=== PATIENT | female | born 1985 | race Caucasian/White ===

== ENCOUNTER 2019-03-30 10:02 | Outpatient (CLI) | payer OTHER, SELFPAY ==
--- NOTE | 2019-03-30 08:45 | MR_ITS ---
WS: [id number] MRI RIGHT SHOULDER NONCONTRAST TECHNIQUE: Sagittal T2, coronal T1, T2 and proton density imaging. Axial gradient PDE imaging. CLINICAL INFORMATION: shoulder pain COMPARISON: None. FINDINGS: Moderate degenerative arthritis at the AC joint. Mild downsloping of the acromion. Subacromial spurri ng. Small near full-thickness insertional tear distal supraspinatus measures 8 mm on sagittal view wi th fluid signal. No tendon retraction. Tendinopathy of the supraspinatus. Infraspinatus is intact. No rmal teres minor. Tendinopathy within the subscapularis. Normal subscapularis. Normal biceps tendon in the bicipital groove. Subscapularis tendon appears inta ct. Small amount of tendinopathy in the subscapularis. Normal biceps labral anchor. Glenoid labrum appears grossly intact. MR/MR shoulder RT wo con* [id number] IMPRESSION: 1. Small insertional tear at the supraspinatus distally with fluid signal. Ins ertional tear measures 8.7 mm on the sagittal imaging. 2. Rotator cuff is otherwise intact. 3. Tendinopathy in supraspinatus and subscapularis. 4. Biceps tendon is intact within the bicipital groove.
== END 2019-03-30 10:03 | disposition home or self-care (01) ==
LOC: RADSHAW 10:02
PROVIDERS: Family Provider Family Medicine; PCP Registered Nurse; Visit Provider Registered Nurse
DX: M75.101 Unspecified rotator cuff tear or rupture of right shoulder, not specified as traumatic (principal); M25.511 Pain in right shoulder; G89.29 Other chronic pain
CPT/HCPCS: 73221

== ENCOUNTER 2019-06-03 14:24 | Outpatient (CLI) | payer OTHER, SELFPAY ==
--- NOTE | 2019-06-03 14:45 | CT_ITS ---
WS: [id number] CT CERVICAL SPINE TECHNIQUE: Noncontrast CT of the cervical spine with coronal and sagittal reformatted images. CLINICAL INFORMATION: extremity numbness COMPARISON: None. DLP: 1292.[address] scans at [facility] use at least one of these dose optimization techniques: automat ed exposure control; mA and/or kV adjustment per patient size (includes targeted exams where dose is matched to clinical indication); or iterative reconstruction. FINDINGS: Straightening of the normal cervical lordosis. Normal C1-C2 articulation. Disc osteophyte complex wor se at C6-7. Low-lying cerebellar tonsils likely incidental. C2-C3: Normal. C3-C4: Normal. C4-C5: No significant disc bulging. Spinal canal and foramen are patent. C5-C6: Mild central disc bulging with slight effacement of ventral thecal sac. Mild central canal brittanie nosis. Foramen are patent. C6-C7: Mild disc osteophyte complex eccentric to the right. Mild central canal stenosis. Mild bilater al foraminal narrowing. C7-T1: No significant disc bulging. Spinal canal and foramen are patent. Visualized posterior nasopharynx: Normal. Prevertebral soft tissues: Normal. CT/CT cervical spin wo con* [id number] IMPRESSION: 1. Straightening of the normal cervical lordosis. 2. Disc osteophyte complex C6-C7 eccentric to the right with mild central eric l stenosis. Mild bilateral foraminal narrowing. 3. Small central disc bulging with mild central canal stenosis. Mild bilateral foraminal narrowing. 4. Slightly low-lying cerebellar tonsils likely incidental.
== END 2019-06-03 14:25 | disposition home or self-care (01) ==
PROVIDERS: Family Provider Family Medicine; PCP Registered Nurse; Visit Provider Registered Nurse
DX: R20.0 Anesthesia of skin (principal); M25.78 Osteophyte, vertebrae; M48.02 Spinal stenosis, cervical region
CPT/HCPCS: 72125

== ENCOUNTER 2019-12-26 22:39 | Emergency (ER) | payer OTHER, SELFPAY ==
[2019-12-26 22:44] VITALS: BP 123/72; PULSE 96; RESP 17; TEMP 36.4; O2SAT 96; BMI 36.3
--- NOTE | 2019-12-26 23:38 | USR_ITS ---
PROCEDURE INFORMATION: Exam: US Nonobstetric Pelvis; Complete Exam date and time: 12/27/2019 12:05 AM Age: 34 years old Clinical indication: Pelvic pain; Prior surgery; Surgery date: 6+ months; Surgery type: C section TECHNIQUE: Imaging protocol: Transabdominal pelvic nonobstetric ultrasound. Complete exam. Real time ultrasound with image documentation. COMPARISON: CT abdomen pelvis w con* [id number] 03/10/2017 2:43 AM FINDINGS: Uterus/cervix: Uterus is normal. Endometrial stripe is normal. Right adnexa: Right ovary 10 mm cyst, likely follicular. Left adnexa: Ovary is normal. No mass. Normal blood flow. Intraperitoneal space: None. Bladder: Normal. US/US pelvic complete* [id number] IMPRESSION: Right ovary 10 mm cyst, likely follicular.
[2019-12-26 23:51] VITALS: BP 124/88; PULSE 84; RESP 16; O2SAT 97
[2019-12-26 23:57] LABS: Basophils # 0.1 10^3/uL (0.0-0.1); Basophils % 0.6 %; Eosinophils # 0.4 10^3/uL (0.0-0.8); Eosinophils % 2.9 %; Hematocrit 44.5 % (37.0-47.0); Lymphocytes # 4.2 10^3/uL (0.8-4.8); Lymphocytes % 30.7 %; Mean Corpuscular HGB Conc 31.5 g/dL (30.0-36.0); Mean Corpuscular Hemoglobin 28.6 pg (28.0-34.0); Mean Platelet Volume 11.2 fL (7.4-10.4); Monocytes % 7.3 %; Neutrophils # 7.97 10^3/uL (1.8-7.7); Neutrophils % 58.1 %; Nucleated Red Blood Cells % 0 %; Platelet Count 237 10^3/cmm (130-400); Red Blood Count 4.89 10^6/uL (4.1-5.3); Red Cell Distribution Width 13.7 % (12.1-15.1); White Blood Count 13.7 10^3/uL (4.0-10.0)
[2019-12-27] VITALS (8 sets, daily range): BP systolic 102–128; BP diastolic 64–80; PULSE 66–94; RESP 14–18; O2SAT 97–100
[2019-12-27 00:14] LABS: Alanine Aminotransferase 40 U/L (0-33); Albumin Level 4.2 g/dL (3.5-5.2); Alkaline Phosphatase 76 IU/L (35-105); Anion Gap 15.7 (5-19); Aspartate Amino Transferase 19 U/L (0-32); Blood Urea Nitrogen 11 mg/dL (6-20); Calcium 9.9 mg/dL (8.5-10.5); Carbon Dioxide 23 mmol/L (22-29); Chloride 101 mmol/L (98-107); Globulin 2.6 g/dL (1.3-4.6); Glucose 105 mg/dL (65-115); Lipase 35 U/L (13-60); Osmolality Calculated 282 mOsm/kg (285-295); Potassium 3.7 mmol/L (3.5-5.1); Sodium 136 mmol/L (136-145); Total Bilirubin 0.2 mg/dL (0.15-1.2); Total Protein 6.8 g/dL (6.6-8.7)
--- NOTE | 2019-12-27 00:25 | W.ED.ABDPA2 ---
HPI - Abdominal Pain General: Chief Complaint: Abdominal Pain Stated Complaint: pelvis pain Time Seen by Provider: 12/26/19 23:33 Source: patient Mode of arrival: ambulatory Limitations: no limitations History of Present Illness: HPI narrative: Bria is a 34-year-old female who comes in complaining of cramping and pressure in her abdomen. He says that she has had diarrhea as well as vaginal discharge. Denies any vaginal bleeding. She denies any fevers or chills. She has been nauseated but has not vomited. She states she feels like when she has had pelvic inflammatory disease in the past and does have vaginal discharge at this time but she states it is not severe and not like when she had pelvic inflammatory disease before. Also complains of diarrhea but there is been no blood in her stools. She has not tried anything at home for this before coming in. She is unaware of any exacerbating or alleviating factors. States the pain is been going on for the past 6 to 8 hours and is not worsening but not resolving. MD elicited complaint: abdominal pain Pertinent past history: other (Pelvic inflammatory disease) Onset (ago): hour(s) (6-8) Pain Consistency: constant Location: Diffuse Severity: moderate Quality: cramping, fullness and burning Radiation: none Migration to: no migration Exacerbating factors: nothing Relieving factors: nothing Context: foreign travel and sick contacts Associated Symptoms: Denies chills, coffee ground emesis, constipation, GI cramping, diarrhea, fever(s), heartburn, hematochezia, hematuria, hematemesis, melena, nausea, syncope and vomiting Related Data: Date of Last Menstrual Period: 12/10/19 Review of Systems Const: Denies: fever(s), chills, body aches, fatigue, malaise or diaphoresis Eyes: Denies: change in vision, blurry vision, photophobia, eye discomfort, eye discharge, eye redness or yellow eyes ENMT: Denies: throat pain, odynophagia, hoarseness, swelling of lips/tongue, ear or mastoid pain, ear discharge, change in hearing or nasal discharge Card: Denies: chest pain, palpitations, irregular heart rhythm, edema, lightheadedness, syncope, pre-syncope, dyspnea on exertion or orthopnea Resp: Denies: dyspnea, productive cough, non-productive cough, wheezing, hemoptysis or chest congestion GI: Reports: abdominal pain; Denies: nausea, vomiting, hematemesis, coffee ground emesis, heartburn, diarrhea, constipation, GI cramping, hematochezia or melena : Reports: vaginal discharge; Denies: flank pain, urinary frequency, urinary urgency or hematuria Musc: Denies: neck pain, back pain, extremity pain, extremity swelling, joint pain, joint swelling, joint redness, joint warmth or joint stiffness Skin/Breast: Denies: rash, pruritus, erythema, skin pain or skin tenderness Neuro: Denies: headache(s), numbness in extremities, weakness in extremities, sensory changes, lack of coordination, difficulty walking, dizziness, vertigo, confusion, Slurred speech present or seizure-like activity Gavin/Lymph: Denies: easy bruising, easy bleeding, petechiae, purpura or enlarged lymph nodes All/Imm: Denies: urticaria, throat swelling, tongue swelling, facial swelling or acute wheezing PFSH ED PFSH: Medical History Chronic right shoulder pain Family History Mother Diabetes Father Diabetes Social History Smoking and tobacco status: current every day smoker cigarettes Quit status (tobacco): has tried quititng Alcohol intake: never Household members: spouse Marital status: Current occupational status: employed Current gender identity: Female Female Reproductive History: Date of last menstrual period: 12/10/19 Physical Exam Const: COMMON NORMALS: no acute distress, patient oriented x3, no limitations and alert GENERAL APPEARANCE: cooperative HENMT: COMMON NORMALS: normocephalic, atraumatic, external ears normal, EAC's normal and Normal external nose present HEAD & SCALP: normal to inspection, normocephalic and atraumatic FACE & SINUS: normal facial exam and face symmetric NOSE: Normal external nose present and Normal nares present EXTERNAL EAR: Yes external ears normal EXTERNAL AUDITORY CANAL: EAC's normal MOUTH: Normal oral and palatal mucosa present, lip normal and tongue normal Eye: COMMON NORMALS: Equal, round and reactive pupils present and conjunctivae normal GENERAL EYE: appearance normal, both eyes and all related structures ALIGNMENT: Yes alignment normal PERIORBITAL: periorbital findings normal EYELID: eyelids normal CONJUNCTIVA: Yes conjunctivae normal SCLERA: sclerae normal PUPIL: Yes Equal, round and reactive pupils present Neck/C-Spine: COMMON NORMALS: full ROM, no lymphadenopathy, supple, no meningeal signs and no JVD GENERAL: Yes normal visual inspection and Yes trachea midline Chest: COMMONS NORMALS: normal inspection of the chest and normal palpation of entire chest wall Resp: COMMON NORMALS: normal respiratory effort, No retractions, No use of accessory muscles and clear to auscultation bilaterally EFFORT & INSPECTION: Yes able to speak in complete sentences and Yes symmetric chest movement AUSCULTATION: clear to auscultation bilaterally, no crackles, no rales, no rhonchi and no wheezes Cardio: COMMON NORMALS: no JVD, regular rate, regular rhythm, S1 normal heart sound present and S2 normal heart sound present RATE: regular rate RHYTHM: regular rhythm HEART SOUNDS: S1 normal heart sound present, S2 normal heart sound present, no click, no gallops, no murmurs and no rubs GI: COMMON NORMALS: Soft to palpation and No hepatosplenomegaly present PALPATION: Yes Soft to palpation, No Tenderness to palpation present (GI), No Guarding due to palpation present (GI), No Rigid due to palpation, Yes No hepatosplenomegaly present, No Hernia present, No Palpable mass present and No Pulsatile mass present : COMMON NORMALS: Yes no CVA tenderness BLADDER/KIDNEY EXAM: Yes no CVA tenderness EXTERNAL FEMALE EXAM: No Hernia present BIMANUAL EXAM - ADNEXA, OTHER: Yes Other (Pelvic exam -no obvious discharge. Mild cervical motion tenderness with palpation but no abscesses or masses palpated. Cervix closed. No vaginal bleeding or vaginal discharge present.) Back/Pelvis: COMMON NORMALS: no CVA tenderness, thoracic and lumbar spine normal to inspection, no thoracic nor lumbar tenderness and thoraco-lumbar ROM normal Extremity: COMMON NORMALS: normal to inspection, full ROM, capillary refill normal, no joint enlargement, no clubbing, cyanosis or edema and no calf tenderness Neuro: COMMON NORMALS: patient oriented x3, CN's II-XII intact bilaterally, moves all extremities, no focal motor deficits and no sensory deficits noted SENSORIUM/ORIENTATION: Yes alert MENINGEAL SIGNS: Yes no meningeal signs SPEECH: speech normal Psych: COMMON NORMALS: mental status grossly normal, Normal thought process present, cooperative, normal affect, speech normal and activity/motor behavior normal SPEECH: Yes normal speech THOUGHT PROCESS: Normal thought process present Skin: COMMON NORMALS: no rashes or lesions noted, turgor normal, no jaundice, no petechiae and no mottling GENERAL SKIN EXAM: no rashes or lesions noted and turgor normal Course Vital Signs: Vital signs: Vital Signs Temperature 97.6 F 12/26/19 22:44 Pulse Rate 66 12/27/19 03:15 Respiratory Rate 14 12/27/19 03:15 Blood Pressure 108/68 12/27/19 03:15 Pulse Oximetry 99 12/27/19 03:15 MDM - Abdominal Pain MDM Narrative: Medical decision making narrative: Bria is a nice 34-year-old female who comes in complaining of lower abdominal pain. Her pain is somewhat her pelvic inflammatory disease in the past but tonight her pelvic exam was not tremendously remarkable and her wet prep was unremarkable. As she had mild cervical motion tenderness I will go ahead and place her on antibiotics. CT scan was performed to rule out appendicitis and there is no evidence of this. I did discuss with the patient that developing appendicitis could still be a cause for her pain and if necessary if she is having any pain at all within the next 12 hours she will need to return. She states she understands this and will follow-up as directed or return if needed. Patient's ultrasound also revealed no evidence of tubo-ovarian abscess. Patient understands that if her symptoms worsen or change she will need to return here immediately. On repeat exam she does not demonstrate any sign of peritonitis. Lab Data: Attestation: I reviewed the patient's lab results. Labs: Lab Results 12/26/19 12/26/19 12/26/19 Range/Units 23:40 23:40 23:40 WBC 13.7 H (4.0-10.0) 10^3/ uL RBC 4.89 (4.1-5.3) 10^6/u L Hgb 14.0 (11.5-15.3) g/dL Hct 44.5 (37.0-47.0) % MCV 91.0 (81-99) fL MCH 28.6 (28.0-34.0) pg MCHC 31.5 (30.0-36.0) g/dL RDW 13.7 (12.1-15.1) % Plt Count 237 (130-400) 10^3/c mm MPV 11.2 H (7.4-10.4) fL Neut % (Auto) 58.1 % Lymph % (Auto) 30.7 % Cost[place] % (Auto) 7.3 % Eos % (Auto) 2.9 % Baso % (Auto) 0.6 % Neut # (Auto) 7.97 H (1.8-7.7) 10^3/u L Lymph # (Auto) 4.2 (0.8-4.8) 10^3/u L [place] # (Auto) 1.0 H (0.2-0.9) 10^3/u L Eos # (Auto) 0.4 (0.0-0.8) 10^3/u L Baso # (Auto) 0.1 (0.0-0.1) 10^3/u L Nucleated RBC % (a uto) 0 % Nucleated RBCs # 0.0 /100WBC Sodium 136 (136-145) mmol/L Potassium 3.7 (3.5-5.1) mmol/L Chloride 101 (98-107) mmol/L Carbon Dioxide 23 (22-29) mmol/L Anion Gap 15.7 (5-19) BUN 11 (6-20) mg/dL Creatinine 0.7 (0.5-0.9) mg/dL GFR Calculation 97.0 (90-130) mL/min Glucose 105 (65-115) mg/dL Calculated Osmolal ity 282 L (285-295) mOsm/k g Calcium 9.9 (8.5-10.5) mg/dL Total Bilirubin 0.2 (0.15-1.2) mg/dL AST 19 (0-32) U/L ALT 40 H (0-33) U/L Alkaline Phosphata se 76 (35-105) IU/L Total Protein 6.8 (6.6-8.7) g/dL Albumin 4.2 (3.5-5.2) g/dL Globulin 2.6 (1.3-4.6) g/dL Lipase 35 (13-60) U/L HCG, Qual Negative (Negative) Urine Color (Yellow) Urine Appearance (CLEAR) Urine pH (5-7) Ur Specific Gravit y (1.005-1.030) Urine Protein (Negative) Urine Glucose (UA) (Normal) Urine Ketones (Negative) Urine Blood (Negative) Urine Nitrate (Negative) Urine Bilirubin (Negative) Urine Urobilinogen (Negative) mg/dL Ur Leukocyte Hailey ase (Negative) Urine RBC (0-2) /hpf Urine WBC (0-5) /hpf Ur Squamous Epith Cells (0-5) /hpf Amorphous Sediment Urine Bacteria (NONE) /hpf 12/27/19 Range/Units 00:13 WBC (4.0-10.0) 10^3/ uL RBC (4.1-5.3) 10^6/u L Hgb (11.5-15.3) g/dL Hct (37.0-47.0) % MCV (81-99) fL MCH (28.0-34.0) pg MCHC (30.0-36.0) g/dL RDW (12.1-15.1) % Plt Count (130-400) 10^3/c mm MPV (7.4-10.4) fL Neut % (Auto) % Lymph % (Auto) % Cost[place] % (Auto) % Eos % (Auto) % Baso % (Auto) % Neut # (Auto) (1.8-7.7) 10^3/u L Lymph # (Auto) (0.8-4.8) 10^3/u L Costilla # (Auto) (0.2-0.9) 10^3/u L Eos # (Auto) (0.0-0.8) 10^3/u L Baso # (Auto) (0.0-0.1) 10^3/u L Nucleated RBC % (a uto) % Nucleated RBCs # /100WBC Sodium (136-145) mmol/L Potassium (3.5-5.1) mmol/L Chloride (98-107) mmol/L Carbon Dioxide (22-29) mmol/L Anion Gap (5-19) BUN (6-20) mg/dL Creatinine (0.5-0.9) mg/dL GFR Calculation (90-130) mL/min Glucose (65-115) mg/dL Calculated Osmolal ity (285-295) mOsm/k g Calcium (8.5-10.5) mg/dL Total Bilirubin (0.15-1.2) mg/dL AST (0-32) U/L ALT (0-33) U/L Alkaline Phosphata se (35-105) IU/L Total Protein (6.6-8.7) g/dL Albumin (3.5-5.2) g/dL Globulin (1.3-4.6) g/dL Lipase (13-60) U/L HCG, Qual (Negative) Urine Color Straw (Yellow) Urine Appearance Clear (CLEAR) Urine pH 5 (5-7) Ur Specific Gravit y 1.005 (1.005-1.030) Urine Protein Neg (Negative) Urine Glucose (UA) Norm (Normal) Urine Ketones Negative (Negative) Urine Blood Neg (Negative) Urine Nitrate Negative (Negative) Urine Bilirubin Neg (Negative) Urine Urobilinogen Norm (Negative) mg/dL Ur Leukocyte Hailey ase Negative (Negative) Urine RBC None (0-2) /hpf Urine WBC None (0-5) /hpf Ur Squamous Epith Cells 0-4 H (0-5) /hpf Amorphous Sediment Not Reportable Urine Bacteria None (NONE) /hpf Imaging Data ^: US: Radiologist's impression: [place] [address] Ultrasound Report Signed Patient: Bria Duran #: [id number] : 1985Acct#:[id number] Age/Sex: 34 / FADM Date: 12/26/19 Loc: ERRoom/Bed: Attending Dr: Ordering Provider/Ordering MD: Meredith Conde DO Date of Service: 12/26/19 Procedure(s): US pelvic complete* [id number] Accession Number(s): [id number] Report Number: [id number] PROCEDURE INFORMATION: Exam: US Nonobstetric Pelvis; Complete Exam date and time: 12/27/2019 12:05 AM Age: 34 years old Clinical indication: Pelvic pain; Prior surgery; Surgery date: 6+ months; Surgery type: C section TECHNIQUE: Imaging protocol: Transabdominal pelvic nonobstetric ultrasound. Complete exam. Real time ultrasound with image documentation. COMPARISON: CT abdomen pelvis w con* [id number] 03/10/2017 2:43 AM FINDINGS: Uterus/cervix: Uterus is normal. Endometrial stripe is normal. Right adnexa: Right ovary 10 mm cyst, likely follicular. Left adnexa: Ovary is normal. No mass. Normal blood flow. Intraperitoneal space: None. Bladder: Normal. US/US pelvic complete* [id number] IMPRESSION: Right ovary 10 mm cyst, likely follicular. Dictated By:Shaun Laura MD Signed By:Shaun Laura MDSigned Date/Time:12/27/1928 DD/ CT Abd/Pel: Radiologist's impression: [facility] [address] [place] [address] CT Scan Report Signed Patient: Bria Duran Unit #: [id number] : 1985 Age/Sex: 34 / F ADM Date: 12/26/19 Loc: ER Room/Bed: Attending Dr: Ordering Provider/Ordering MD: Meredith Conde DO Date of Service: 12/27/19 Procedure(s): CT abdomen pelvis w con* [id number] Accession Number(s): [id number] Report Number: [id number] PROCEDURE INFORMATION: Exam: CT Abdomen And Pelvis With Contrast Exam date and time: 12/27/2019 2:32 AM Age: 34 years old Clinical indication: Abdominal pain; Generalized TECHNIQUE: Imaging protocol: Computed tomography of the abdomen and pelvis with intravenous contrast. Radiation optimization: All CT scans at this facility use at least one of these dose optimization techniques: automated exposure control; mA and/or kV adjustment per patient size (includes targeted exams where dose is matched to clinical indication); or iterative reconstruction. Contrast material: OMNI 400; Contrast volume: 95 ml; Contrast route: INTRAVENOUS (IV); COMPARISON: CT abdomen pelvis w con* [id number] 03/10/2017 2:43 AM RADIATION DOSE METRICS: Total DLP (mGy-cm): 1485.46 FINDINGS: Liver: Fatty change is present. No mass. Gallbladder and bile ducts: Normal. No calcified stones. No ductal dilation. Pancreas: Normal. No ductal dilation. Spleen: Normal. No splenomegaly. Adrenals: Normal. No mass. Kidneys and ureters: Normal. No hydronephrosis. Stomach and bowel: Unremarkable. No obstruction. No mucosal thickening. Appendix: No evidence of appendicitis. Intraperitoneal space: Unremarkable. No free air. No significant fluid collection. Vasculature: Unremarkable. No abdominal aortic aneurysm. Lymph nodes: Unremarkable. No enlarged lymph nodes. Urinary bladder: Unremarkable as visualized. Reproductive: The uterus is not enlarged. Unremarkable as visualized. Bones/joints: Unremarkable. No acute fracture. Soft tissues: Unremarkable. CT/CT abdomen pelvis w con* [id number] IMPRESSION: No acute findings. Radiation Dose CTDIVOL = (mGy): DLP = 1485.46 (mGy-cm) Dictated By: Bettie William Signed By: Bettie William Signed Date/Time: 12/27/19312 DD/ 1 Discharge Plan Discharge Patient Disposition: Home Clinical Impression: Abdominal pain Qualifiers: Abdominal location: lower abdomen, unspecified Qualified Code(s): R10.30 - Lower abdominal pain, unspecified Condition: Stable Prescriptions: New Flagyl 500 mg tablet 500 mg PO BID 14 Days Qty: 28 RF: 0 doxycycline hyclate 100 mg capsule 100 mg PO Q12H 14 Days Qty: 28 RF: 0 No Action baclofen 20 mg tablet 10 mg PO DAILY PRN (Reason: M54.2) Qty: 30 RF: 0 ibuprofen 800 mg tablet 800 mg PO TID PRNRF: 0 fluoxetine [Prozac] 20 mg capsule 20 mg PO BID PRNRF: 0 naproxen 250 mg tablet 250 mg PO BID PRNRF: 0 Discharge Orders: Discharge Order (Routine); Ordered 12/27/19 Ordered By: Meredith Conde Referrals: Antonette Drew FNP [Primary Care Provider] - Glenn Soares MD [Family Provider] - 1-3 days Discharge Diet: Advance as tolerated Discharge Activity: Increase activity as tolerated Patient Instructions: Pelvic Inflammatory Disease (ED), Acute Abdominal Pain (ED), Abdominal Pain (ED) Activity Restrictions/Additional Instructions: Please return to the ER immediately for any of the signs or symptoms listed on your discharge instruction sheets, worsening/changing of your symptoms, you are not getting better as quickly as expected, or for ANY other cause or concerns. Developing appendicitis is still a possibility for your pain. If your symptoms have not completely resolved within the next 12 hours please return to the ER immediately for recheck. Return to the ER sooner for increased pain, new onset of fever, vomiting, vaginal bleeding, or for any other cause for concern. Coding Level of Care Code ED Land Surveyor Assistant for Chg Fwd Exam Comprehensive
[2019-12-27 01:22] LABS: Add Urine Culture? No; Bilirubin Urine Neg (Negative); Blood Urine Neg (Negative); Glucose Urine UA Norm (Normal); Ketones Urine Negative (Negative); Leukocyte Esterase Urine Negative (Negative); Nitrate Urine Negative (Negative); Protein Urine Neg (Negative); Specific Gravity, Urine 1.005 (1.005-1.030); Squamous Epithelial Cell Urine 0-4 /hpf (0-5); Urine Appearance Clear (CLEAR); Urine Color Straw (Yellow); Urobilinogen Urine Norm (Negative); pH Urine 5 (5-7)
--- NOTE | 2019-12-27 01:39 | CTR_ITS ---
PROCEDURE INFORMATION: Exam: CT Abdomen And Pelvis With Contrast Exam date and time: 12/27/2019 2:32 AM Age: 34 years old Clinical indication: Abdominal pain; Generalized TECHNIQUE: Imaging protocol: Computed tomography of the abdomen and pelvis with intravenous contrast. Radiation optimization: All CT scans at this facility use at least one of these dose optimization techniques: automated exposure control; mA and/or kV adjustment per patient size (includes targeted exams where dose is matched to clinical indication); or iterative reconstruction. Contrast material: OMNI 400; Contrast volume: 95 ml; Contrast route: INTRAVENOUS (IV); COMPARISON: CT abdomen pelvis w con* [id number] 03/10/2017 2:43 AM RADIATION DOSE METRICS: Total DLP (mGy-cm): 1485.46 FINDINGS: Liver: Fatty change is present. No mass. Gallbladder and bile ducts: Normal. No calcified stones. No ductal dilation. Pancreas: Normal. No ductal dilation. Spleen: Normal. No splenomegaly. Adrenals: Normal. No mass. Kidneys and ureters: Normal. No hydronephrosis. Stomach and bowel: Unremarkable. No obstruction. No mucosal thickening. Appendix: No evidence of appendicitis. Intraperitoneal space: Unremarkable. No free air. No significant fluid collection. Vasculature: Unremarkable. No abdominal aortic aneurysm. Lymph nodes: Unremarkable. No enlarged lymph nodes. Urinary bladder: Unremarkable as visualized. Reproductive: The uterus is not enlarged. Unremarkable as visualized. Bones/joints: Unremarkable. No acute fracture. Soft tissues: Unremarkable. CT/CT abdomen pelvis w con* [id number] IMPRESSION: No acute findings. Radiation Dose CTDIVOL = (mGy): DLP = 1485.46 (mGy-cm)
[2019-12-27 02:36] LABS: HCG, Serum Qual Negative (Negative)
[2019-12-27] MEDS: iohexol 300 mg/mL 100 mL Btl IV (02:45)
[2019-12-27] MEDS: cefTRIAXone 1,000 MG in sodium chloride 0.9% (plus) 50 ML 100 MG IV (03:33)
[2019-12-27] MEDS: morphine 4 mg/mL SDV 1 mL IVP (03:33)
[2019-12-27] MEDS: ondansetron 2 mg/ML SDV 2 mL 4 MG IVP (03:34)
[2019-12-27] MEDS: doxycycline 100 mg Tablet PO (03:34)
[2019-12-27] MEDS: metroNIDAZOLE 500 MG Tablet PO (03:34)
== END 2019-12-27 04:03 | disposition home or self-care (01) ==
PROVIDERS: Emergency Provider Emergency Medicine; Family Provider Family Medicine; PCP Registered Nurse
DX: R10.30 Lower abdominal pain, unspecified (principal); F17.210 Nicotine dependence, cigarettes, uncomplicated
CPT/HCPCS: 12345; 74177; 76856; 80053; 81001; 83690; 84703; 85025; 87210; 96365; 96375; 99283; 99284; J0696; J2270; J2405; Q9967

== ENCOUNTER → 2021-04-28 13:24 | Outpatient (BNVA) | payer OTHER, SELFPAY | PROVIDERS: Family Provider Family Medicine; PCP Registered Nurse; Visit Provider Registered Nurse | DX: M54.18 Radiculopathy, sacral and sacrococcygeal region (principal); N89.8 Other specified noninflammatory disorders of vagina; N92.6 Irregular menstruation, unspecified | CPT/HCPCS: 81000; 81025 ==

== ENCOUNTER 2021-05-19 17:31 | Outpatient (CLI) | payer OTHER, SELFPAY ==
--- NOTE | 2021-05-19 17:43 | XRR_ITS ---
PROCEDURE INFORMATION: Exam: XR Sacrum and Coccyx, 2 or More Views Exam date and time: 05/19/2021 5:43 PM Age: 35 years old Clinical indication: Pain in coccyx area; Prior surgery; Surgery type: C section; Patient HX: Coccyx pain off and on for 2 years; Additional info: M54.18 - radiculopathy, sacral and sacrococcygeal region TECHNIQUE: Imaging protocol: XR of the sacrum and coccyx, 2 or more views. COMPARISON: CT abdomen pelvis w con* [id number] 12/27/2019 2:39 AM FINDINGS: Bones/joints: No acute fracture or malalignment. Joint spaces are maintained. Soft tissues: Normal. XR/XR sacrum coccyx min 2V [id number] IMPRESSION: No acute fracture or malalignment.
== END 2021-05-19 17:32 | disposition home or self-care (01) ==
LOC: RAD 17:36
PROVIDERS: PCP Registered Nurse; Visit Provider Registered Nurse
DX: M54.18 Radiculopathy, sacral and sacrococcygeal region (principal)
CPT/HCPCS: 72220

== ENCOUNTER → 2021-05-21 18:04 | Outpatient (BNVA) | payer OTHER, SELFPAY | PROVIDERS: PCP Registered Nurse; Visit Provider Nurse Practitioner | DX: R05.9 Cough, unspecified (principal) | CPT/HCPCS: 87400 ==

== ENCOUNTER → 2021-07-06 13:20 | Outpatient (BNVA) | payer OTHER, SELFPAY | PROVIDERS: PCP Registered Nurse; Visit Provider Family Medicine | DX: R52 Pain, unspecified (principal); Z20.828 Contact with and (suspected) exposure to other viral communicable diseases | CPT/HCPCS: 87400 ==

== ENCOUNTER 2021-12-06 23:26 | Emergency (ER) | payer SELFPAY ==
[2021-12-06 23:39] VITALS: BP 135/93; PULSE 74; RESP 16; TEMP 36.8; O2SAT 98; BMI 38.0
== END 2021-12-07 02:44 | disposition left against medical advice (07) ==
PROVIDERS: Emergency Provider Family Medicine; PCP Registered Nurse
DX: Z53.21 Procedure and treatment not carried out due to patient leaving prior to being seen by health care provider (principal); R51.9 Headache, unspecified

== ENCOUNTER → 2022-03-06 14:05 | Outpatient (BNVA) | payer OTHER, SELFPAY | PROVIDERS: PCP Registered Nurse; Visit Provider Nurse Practitioner Family | DX: R50.9 Fever, unspecified (principal) | CPT/HCPCS: 87400; 87880 ==

== ENCOUNTER → 2022-04-12 11:02 | Outpatient (BNVA) | payer OTHER, SELFPAY | PROVIDERS: PCP Registered Nurse; Visit Provider Family Medicine | DX: M75.101 Unspecified rotator cuff tear or rupture of right shoulder, not specified as traumatic (principal); M25.511 Pain in right shoulder; G89.29 Other chronic pain; R73.09 Other abnormal glucose; R20.0 Anesthesia of skin; R53.82 Chronic fatigue, unspecified | CPT/HCPCS: 80053; 80061; 82533; 82550; 83036; 85025; 85651; 86038; 86140; 86431 ==

== ENCOUNTER 2022-04-24 15:47 | Outpatient (CLI) | payer OTHER, SELFPAY ==
[2022-04-24 17:04] LABS: Thyroid Stimulating Hormone 0.91 uIU/mL (0.27-4.20)
[2022-04-24 18:32] LABS: Creatine Phosphokinase 65 U/L (26-192)
[2022-04-27 15:59] LABS: ANCA Screen NEGATIVE (NEGATIVE)
== END 2022-04-24 15:48 | disposition home or self-care (01) ==
LOC: LAB 15:52
PROVIDERS: PCP Family Medicine; Visit Provider Family Medicine
DX: R53.82 Chronic fatigue, unspecified (principal)
CPT/HCPCS: 36415; 82550; 84439; 84443; 86036

== ENCOUNTER → 2022-08-07 10:45 | Outpatient (BNVA) | payer OTHER, SELFPAY | PROVIDERS: PCP Family Medicine; Visit Provider Internal Medicine | DX: R70.0 Elevated erythrocyte sedimentation rate (principal); M45.0 Ankylosing spondylitis of multiple sites in spine; M25.50 Pain in unspecified joint | CPT/HCPCS: 36415; 72040; 72100; 73120; 73620; 82550; 82607; 82784; 83516; 84100; 85651; 86140; 86160; 86162; 86200; 86235; 86255; 86376; 86704; 86803; 86812; 87340 ==

== ENCOUNTER 2022-10-05 12:58 | Outpatient (RCR) | payer OTHER, SELFPAY | END 2022-10-15 23:59 | disposition home or self-care (01) | LOC: SPT 12:58 | PROVIDERS: Visit Provider Internal Medicine | DX: M76.30 Iliotibial band syndrome, unspecified leg (principal) | CPT/HCPCS: 97110; 97161 ==

== ENCOUNTER 2022-10-16 06:00 | Outpatient (RCR) | payer OTHER, MEDICAID, SELFPAY | END 2022-11-15 23:59 | disposition home or self-care (01) | LOC: SPT 06:00 | PROVIDERS: Visit Provider Internal Medicine | DX: M76.30 Iliotibial band syndrome, unspecified leg (principal) | CPT/HCPCS: 97110 ==

== ENCOUNTER → 2022-11-26 14:43 | Outpatient (BNVA) | payer OTHER, MEDICAID, SELFPAY | PROVIDERS: Visit Provider Internal Medicine | DX: M70.61 Trochanteric bursitis, right hip (principal); R70.0 Elevated erythrocyte sedimentation rate; R53.82 Chronic fatigue, unspecified; M25.50 Pain in unspecified joint; M25.511 Pain in right shoulder; G89.29 Other chronic pain; M54.2 Cervicalgia; M70.60 Trochanteric bursitis, unspecified hip | CPT/HCPCS: 36415; 80053; 82550; 83520; 84100; 85025; 85651; 86003; 86008; 86140 ==

== ENCOUNTER → 2022-12-04 09:10 | Outpatient (BNVA) | payer OTHER, MEDICAID, SELFPAY | PROVIDERS: Visit Provider Nurse Practitioner Family | DX: R05.9 Cough, unspecified (principal); J06.9 Acute upper respiratory infection, unspecified | CPT/HCPCS: 87426 ==

== ENCOUNTER → 2023-01-08 09:00 | Outpatient (BNVA) | payer OTHER, SELFPAY | PROVIDERS: Visit Provider Nurse Practitioner Family | DX: J02.9 Acute pharyngitis, unspecified (principal); R52 Pain, unspecified; J40 Bronchitis, not specified as acute or chronic | CPT/HCPCS: 87426 ==

== ENCOUNTER 2023-02-25 00:29 | Emergency (ER) | payer OTHER, SELFPAY ==
[2023-02-25 00:33] VITALS: BP 185/99; PULSE 128; RESP 18; TEMP 36.3; O2SAT 99
--- NOTE | 2023-02-25 00:40 | ECG_ITS ---
[facility] Test Date: 2023-02-25 Pat Name: Bria Mares Department: Room: Gender: Female Ophthalmic Technologist: : 1985 Requested By: Willie Elizabeth Order Number: [id number] Izabela MD: Benjy Pyle M.D. Measurements Intervals [place] Rate: 126 P: 46 AK: 144 QRS: -2 QRSD: 84 T: 35 QT: 321 QTc: 466 Interpretive Statements SINUS TACHYCARDIA LOW QRS VOLTAGE IN PRECORDIAL LEADS [QRS DEFLECTION < 1.0 mV IN CHEST LEADS] PROBABLE INFERIOR MYOCARDIAL INFARCTION , PROBABLY OLD [35 ms Q WAVE IN II/aVF] No previous ECG available for comparison Electronically Signed On 02-25-2023 15:54:26 TRANSPORTATION MAINTENANCE SPECIALIST by Benjy Pyle M.D. [email or web address]
--- NOTE | 2023-02-25 00:40 | XRR_ITS ---
PROCEDURE INFORMATION: Exam: XR Chest Exam date and time: 02/25/2023 1:06 AM Age: 37 years old Clinical indication: Pain; Chest pressure; Patient HX: C/O chest heaviness with tachycardia. ; Additional info: Palpitations TECHNIQUE: Imaging protocol: Radiologic exam of the chest. Views: 1 view. COMPARISON: CR XR cervical spine fl/ex [id number] 08/07/2022 11:09 AM FINDINGS: Lungs: Unremarkable. No consolidation. Pleural spaces: Unremarkable. No pleural effusion. No pneumothorax. Heart/Mediastinum: Unremarkable. No cardiomegaly. Bones/joints: Unremarkable. XR/XR chest 1V portable [id number] IMPRESSION: No acute findings.
[2023-02-25 00:54] LABS: Basophils # 0.1 10^3/uL (0.0-0.1); Basophils % 0.5 %; Eosinophils # 0.3 10^3/uL (0.0-0.8); Eosinophils % 1.6 %; Hematocrit 46.9 % (36-47); Mean Corpuscular HGB Conc 33.3 g/dL (30-55); Mean Corpuscular Hemoglobin 28.9 pg (27-33); Mean Corpuscular Volume 86.9 fl (85-98); Mean Platelet Volume 10.7 fL (7.4-10.4); Monocytes # 1.1 10^3/uL (0.2-0.9); Monocytes % 6.2 %; Neutrophils # 10.77 10^3/uL (1.8-7.7); Neutrophils % 62.4 %; Nucleated Red Blood Cells % 0 %; Platelet Count 291 10^3/cmm (157-399); Red Cell Distribution Width 13.6 % (12.1-15.1); White Blood Count 17.29 10^3/uL (3.29-11.43)
[2023-02-25] MEDS: metoprolol tartrate 1 mg/1 mL SDV 5 mL 5 MG IVP (00:58)
--- NOTE | 2023-02-25 01:04 | PC.NURSE ---
Patient refused metoprolol during pushing of medication. 2 mg had been administered and patient became anxious and requested to stop admin.
[2023-02-25 01:06] VITALS: BP 127/85; PULSE 106; RESP 20; O2SAT 96
[2023-02-25 01:13] LABS: Troponin(5th) Baseline < 6 ng/L (0-10)
[2023-02-25 01:28] VITALS: BP 121/76; PULSE 89; RESP 15; O2SAT 96
[2023-02-25 01:29] LABS: Alanine Aminotransferase 23 U/L (0-33); Albumin Level 4.8 g/dL (3.5-5.2); Alkaline Phosphatase 85 U/L (35-105); Anion Gap 17.1 (5-19); Aspartate Amino Transferase 15 U/L (0-32); Blood Urea Nitrogen 12 mg/dL (6-20); Calcium 10.4 mg/dL (8.5-10.5); Carbon Dioxide 23 mmol/L (22-29); Chloride 102 mmol/L (98-107); Globulin 2.6 g/dL (1.3-4.6); Glomerular Filtration Rate 81.6 mL/min (90-130); Glucose 126 mg/dL (65-115); NT Pro B Type Natriuretic Pept 85 pg/mL (0-125); Osmolality Calculated 287 mOsm/kg (285-295); Potassium 4.1 mmol/L (3.5-5.1); Sodium 138 mmol/L (136-145); Thyroid Stimulating Hormone 1.62 uIU/mL (0.27-4.20); Total Bilirubin 0.2 mg/dL (0.15-1.2); Total Protein 7.4 g/dL (6.6-8.7)
[2023-02-25 01:31] LABS: Add Urine Microscopic? NO; Charge for UA Resulting for Rev
[2023-02-25 01:37] LABS: Urine Appearance Clear (CLEAR); Urine Color Light yellow (Yellow); pH Urine 5 (5-7)
[2023-02-25 01:38] LABS: Bilirubin Urine Neg (Negative); Blood Urine Neg (Negative); Glucose Urine UA Norm (Normal); Ketones Urine 1+ (Negative); Leukocyte Esterase Urine Negative (Negative); Nitrate Urine Negative (Negative); Protein Urine Neg (Negative); Specific Gravity, Urine 1.015 (1.005-1.030); Urobilinogen Urine Norm (Negative)
[2023-02-25 01:46] LABS: Amphetamines Screen Urine Negative (Negative); Barbiturates Screen Urine Negative (Negative); Benzodiazepines Screen Urine Negative (Negative); Cocaine Screen Urine Negative (Negative); Opiate Screen Urine Negative (Negative); PCP Screen Urine Negative (Negative); THC Screen Urine Negative (Negative)
--- NOTE | 2023-02-25 02:00 | CTR_ITS ---
PROCEDURE INFORMATION: Exam: CTA Chest With Contrast Exam date and time: 02/25/2023 2:10 AM Age: 37 years old Clinical indication: Pain and abnormal findings; Abnormal diagnostic tests; Elevated d-dimer; Chest pressure; Patient HX: Chest heaviness with tachycardia. Dimer 0.80. ; Additional info: Chest pain TECHNIQUE: Imaging protocol: Computed tomographic angiography of the chest with contrast. Exam focused on the arteries. 3D rendering (Not supervised by radiologist): MIP and/or 3D reconstructed images were created by the technologist. Radiation optimization: All CT scans at this facility use at least one of these dose optimization techniques: automated exposure control; mA and/or kV adjustment per patient size (includes targeted exams where dose is matched to clinical indication); or iterative reconstruction. Contrast material: OMNI 350; Contrast volume: 60 ml; Contrast route: INTRAVENOUS (IV); REPORTING DATA: Count of CT and Cardiac NM exams in prior 12 months: This patient has received 0 known CTs and 0 known cardiac nuclear medicine studies in the 12 months prior to the current study. COMPARISON: CR (CHEST, ) 02/25/2023 1:06 AM RADIATION DOSE METRICS: Total DLP (mGy-cm): 450.48 FINDINGS: Pulmonary arteries: Normal. No pulmonary emboli. Aorta: Unremarkable. No aortic aneurysm. No aortic dissection. Lungs: Unremarkable. No consolidation. No masses. Pleural spaces: Unremarkable. No pneumothorax. No pleural effusion. Heart: Unremarkable. No cardiomegaly. No pericardial effusion. Lymph nodes: Unremarkable. No enlarged lymph nodes. Bones/joints: Unremarkable. No acute fracture. Soft tissues: Unremarkable. CT/CT angio chest PE protcl [id number] IMPRESSION: No acute findings.
[2023-02-25] MEDS: iohexol 350 mg/mL 500 mL Btl (per mL) IV (02:18)
--- NOTE | 2023-02-25 02:40 | ECG_ITS ---
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 Measurements Intervals [place] Rate: 72 P: 24 MT: 170 QRS: 25 QRSD: 93 T: 32 QT: 368 QTc: 403 Interpretive Statements SINUS RHYTHM Compared to ECG 02/25/2023 00:37:00 Sinus tachycardia no longer present Myocardial infarct finding no longer present Electronically Signed On 02-25-2023 15:58:55 GENERAL ASSISTANT by Bejny Pyle M.D. [id number]
[2023-02-25 02:55] VITALS: BP 118/87; PULSE 78; RESP 15; O2SAT 96
[2023-02-25 03:07] VITALS: BP 143/89; PULSE 71; RESP 12; O2SAT 97
[2023-02-25 03:14] LABS: Troponin 5 2HR Delta 0.00001 ABS# (0-10)
[2023-02-25 03:17] VITALS: BP 114/72; PULSE 75; RESP 18; O2SAT 97
--- NOTE | 2023-02-25 06:16 | W.ED.ARRPALP ---
HPI - Arrhythmia/Palpitations General: Chief Complaint: Arrhythmia/Palpitations Stated Complaint: heartrate, reaction from cream, weakness Time Seen by Provider: 02/25/23 00:39 Source: patient History of Present Illness: 37-year-old female who began to have palpitations, left shoulder pain some mild chest discomfort, shortness of breath. She checked her heart rate and it was quite fast. This happened just after applying diclofenac gel to her right shoulder for arthritis pain. She is unsure if these are related or not. She denies any fever. She denies significant cough. She has not had any reactions like this in the past. PFS ED PFSH: Medical History IT band syndrome Coccyx pain Allergic rhinitis due to allergen Chronic right shoulder pain Surgical History Hx of section Hx of oral surgery Family History Mother Diabetes Father Diabetes Social History Smoking and tobacco/nicotine status: current every day tobacco/nicotine user cigarettes Packs smoked per day: 0.5 Quit status (tobacco/nicotine): has tried quititng Alcohol intake: current Alcohol intake frequency: holidays/special occasions only Substance/Drug Use: never Adopted: No Caregiver/support person: No Lives independently: No Household members: spouse Housing: House Marital status: Number of children: 3 Highest education level completed: High School Graduate service: No Current occupational status: employed Current occupational exposures/hazards: No Pets and animals: No Sexually active: Yes Do you think of yourself as: Straight/Heterosexual Current gender identity: Female Female Reproductive History: Date of last menstrual period: 02/01/23 Physical Exam Const: GENERAL APPEARANCE: cooperative, anxious and diaphoretic; not ill appearing and not frail appearing HENMT: COMMON NORMALS: normocephalic, atraumatic and Normal external nose present HEAD & SCALP: normocephalic and atraumatic FACE & SINUS: normal facial exam and face symmetric NOSE: Normal external nose present MOUTH: Normal oral and palatal mucosa present and tongue normal Eye: COMMON NORMALS: Equal, round and reactive pupils present and EOMs intact bilaterally PUPIL: Yes Equal, round and reactive pupils present Neck/C-Spine: GENERAL: Yes trachea midline Chest: CHEST: Yes Symmetrical chest wall rise Resp: COMMON NORMALS: normal respiratory effort, No retractions, No use of accessory muscles and clear to auscultation bilaterally AUSCULTATION: clear to auscultation bilaterally Cardio: COMMON NORMALS: regular rhythm RATE: tachycardic RHYTHM: regular rhythm GI: COMMON NORMALS: Normal to inspection, nondistended, normoactive bowel sounds present Extremity: COMMON NORMALS: no pedal edema Neuro: ARETHA COMA SCALE: document GCS findings [place] coma scale eye opening: Spontaneous Aretha coma scale verbal response: Orientated [place] coma scale motor response: Obey commands [place] coma scale total score: 15 SENSORY EXAM: Yes extremities (intact) Psych: COMMON NORMALS: speech normal SPEECH: Yes normal speech Skin: COMMON NORMALS: no rashes or lesions noted GENERAL SKIN EXAM: no rashes or lesions noted Course Vital Signs: Vital signs: Vital Signs Temperature 97.4 F L 02/25/23 00:33 Pulse Rate 75 02/25/23 03:17 Respiratory Rate 18 02/25/23 03:17 Blood Pressure 114/72 02/25/23 03:17 Pulse Oximetry 97 02/25/23 03:17 Oxygen Delivery Me thod Room Air 02/25/23 03:07 MDM - Arrhythmia/Palpitations Medical Decision Making The patient significantly tachycardic on arrival in the 140s and 150s at rest. She was hypertensive as well. Rate began to decrease on its own, but was still in the 120s and 130s. She was given 2.5 mg of IV metoprolol, with resolution of her tachycardia. Her blood pressure improved as well. Her hemoglobin is 16. Her white blood cell count is 17. Her differential is normal. Sugar is 126. Rest of her BNP liver enzymes urinalysis and UDS are normal. Her D-dimer was elevated at 0.8. She has a delta troponin of 0. Her EKG showed sinus tachycardia with acute ST wave changes. CTA of the chest was performed due to elevated D-dimer, and is negative for any acute disease. She will be allowed home. She will avoid this medication until cleared by her doctor. Lab Data 02/25/23 00:46 02/25/23 00:46 Radiology Impressions Chest X-Ray 02/25/23 00:40 IMPRESSION: No acute findings. Chest CTA 02/25/23 02:00 IMPRESSION: No acute findings. Laboratory Results WBC 17.29 10^3/uL (3.29-11.43) H 02/25/23 00:46 RBC 5.40 10^6/uL (3.85-5.65) 02/25/23 00:46 Hgb 15.60 g/dL (11.27-16.99) 02/25/23 00:46 Hct 46.9 % (36-47) 02/25/23 00:46 MCV 86.9 fl (85-98) 02/25/23 00:46 MCH 28.9 pg (27-33) 02/25/23 00:46 MCHC 33.3 g/dL (30-55) 02/25/23 00:46 RDW 13.6 % (12.1-15.1) 02/25/23 00:46 Plt Count 291 10^3/cmm (157-399) 02/25/23 00:46 MPV 10.7 fL (7.4-10.4) H 02/25/23 00:46 Neut % (Auto) 62.4 % 02/25/23 00:46 Lymph % (Auto) 29.0 % 02/25/23 00:46 [place] % (Auto) 6.2 % 02/25/23 00:46 Eos % (Auto) 1.6 % 02/25/23 00:46 Baso % (Auto) 0.5 % 02/25/23 00:46 Neut # (Auto) 10.77 10^3/uL (1.8-7.7) H 02/25/23 00:46 Lymph # (Auto) 5.0 10^3/uL (0.8-4.8) H 02/25/23 00:46 [place] # (Auto) 1.1 10^3/uL (0.2-0.9) H 02/25/23 00:46 Eos # (Auto) 0.3 10^3/uL (0.0-0.8) 02/25/23 00:46 Baso # (Auto) 0.1 10^3/uL (0.0-0.1) 02/25/23 00:46 Nucleated RBC % (auto) 0 % 02/25/23 00:46 Nucleated RBCs # 0.0 /100WBC 02/25/23 00:46 D-Dimer 0.80 ug/mLFEU (0-0.59) H 02/25/23 00:46 Sodium 138 mmol/L (136-145) 02/25/23 00:46 Potassium 4.1 mmol/L (3.5-5.1) 02/25/23 00:46 Chloride 102 mmol/L (98-107) 02/25/23 00:46 Carbon Dioxide 23 mmol/L (22-29) 02/25/23 00:46 Anion Gap 17.1 (5-19) 02/25/23 00:46 BUN 12 mg/dL (6-20) 02/25/23 00:46 Creatinine 0.8 mg/dL (0.5-0.9) 02/25/23 00:46 GFR Calculation 81.6 mL/min (90-130) L 02/25/23 00:46 Glucose 126 mg/dL (65-115) H 02/25/23 00:46 Calculated Osmolality 287 mOsm/kg (285-295) 02/25/23 00:46 Calcium 10.4 mg/dL (8.5-10.5) 02/25/23 00:46 Total Bilirubin 0.2 mg/dL (0.15-1.2) 02/25/23 00:46 AST 15 U/L (0-32) 02/25/23 00:46 ALT 23 U/L (0-33) 02/25/23 00:46 Alkaline Phosphatase 85 U/L (35-105) 02/25/23 00:46 Troponin T Baseline < 6 ng/L (0-10) 02/25/23 00:46 Troponin T 120 Minute 6.00 ng/L (0-10) 02/25/23 02:40 Delta Troponin T 0.58694 ABS# (0-10) 02/25/23 02:40 NT-Pro-B Natriuret Pep 85 pg/mL (0-125) 02/25/23 00:46 Total Protein 7.4 g/dL (6.6-8.7) 02/25/23 00:46 Albumin 4.8 g/dL (3.5-5.2) 02/25/23 00:46 Globulin 2.6 g/dL (1.3-4.6) 02/25/23 00:46 TSH 1.62 uIU/mL (0.27-4.20) 02/25/23 00:46 Urine Color Light yellow (Yellow) 02/25/23 01:29 Urine Appearance Clear (CLEAR) 02/25/23 01:29 Urine pH 5 (5-7) 02/25/23 01:29 Ur Specific [place] 1.015 (1.005-1.030) 02/25/23 01:29 Urine Protein Neg (Negative) 02/25/23 01:29 Urine Glucose (UA) Norm (Normal) 02/25/23 01:29 Urine Ketones 1+ (Negative) H 02/25/23 01:29 Urine Blood Neg (Negative) 02/25/23 01:29 Urine Nitrate Negative (Negative) 02/25/23 01:29 Urine Bilirubin Neg (Negative) 02/25/23 01:29 Urine Urobilinogen Norm mg/dL (Negative) 02/25/23 01:29 Ur Leukocyte Esterase Negative (Negative) 02/25/23 01:29 Urine Opiates Screen Negative ng/mL (Negative) 02/25/23 01:29 Ur Barbiturates Screen Negative ng/mL (Negative) 02/25/23 01:29 Ur Phencyclidine Scrn Negative ng/mL (Negative) 02/25/23 01:29 Ur Amphetamines Screen Negative ng/mL (Negative) 02/25/23 01:29 U Benzodiazepines Scrn Negative ng/mL (Negative) 02/25/23 01:29 Urine Cocaine Screen Negative ng/mL (Negative) 02/25/23 01:29 U Marijuana (THC) Screen Negative ng/mL (Negative) 02/25/23 01:29 All radiology interpretation(s) finalized by discharge Discharge Plan Discharge Patient Disposition: Home Clinical Impression: Sinus tachycardia, Adverse effect of drug Condition: Stable Prescriptions: No Action celecoxib [Celebrex] 100 mg capsule 100 mg PO BID Qty: 60 2RF fluticasone propionate [Flonase Allergy Relief] 50 mcg/actuation spray,suspension 1 spray intranasal BID Qty: 16 0RF Rx Instructions: administer into each nostril Zyrtec 10 mg capsule 10 mg PO DAILY PRN Discharge Orders: Discharge ED (Routine); Ordered 02/25/23 Ordered By: Willie Cifuentes Referrals: Marlon Cali DO [Primary Care Provider] - 1-3 days Patient Instructions: Adverse Drug Reaction (ED), Tachycardia (ED), Opioid Safety, Pain Management Activity Restrictions/Additional Instructions: Return for any return of fast heart rates, chest pain, shortness of breath, any other concerning symptoms. Drink plenty of water today. Avoid the use of the medication you put on your shoulder (diclofenac) in the future, unless cleared by your doctor. Coding Level of Care Code ED Flocculator Operator for Brittney Martin
== END 2023-02-25 03:18 | disposition home or self-care (01) ==
PROVIDERS: Emergency Provider Emergency Medicine; PCP Family Medicine
DX: R00.0 Tachycardia, unspecified (principal); T39.395A Adverse effect of other nonsteroidal anti-inflammatory drugs [NSAID], initial encounter; F17.210 Nicotine dependence, cigarettes, uncomplicated
CPT/HCPCS: 36415; 71045; 71275; 80053; 80306; 81003; 83880; 84443; 84484; 85025; 85378; 93005; 96374; 99285; J3490; Q9967

== ENCOUNTER 2023-04-07 23:30 | Emergency (ER) | payer OTHER, SELFPAY ==
[2023-04-07 23:33] VITALS: BP 151/101; PULSE 109; RESP 18; TEMP 37.1; O2SAT 92; BMI 36.5
--- NOTE | 2023-04-07 23:40 | XRR_ITS ---
PROCEDURE INFORMATION: Exam: XR Chest Exam date and time: 04/07/2023 11:43 PM Age: 37 years old Clinical indication: Pain; Chest pressure; Patient HX: C/O chest heaviness with tachycardia. ; Additional info: Cp TECHNIQUE: Imaging protocol: Radiologic exam of the chest. Views: 1 view. COMPARISON: CT angio chest PE protcl [id number] 02/25/2023 2:10 AM FINDINGS: Lungs: Unremarkable. No consolidation. Pleural spaces: Unremarkable. No pleural effusion. No pneumothorax. Heart/Mediastinum: Unremarkable. No cardiomegaly. Bones/joints: Unremarkable. XR/XR chest 1V portable [id number] IMPRESSION: No acute plain radiographic cardiopulmonary abnormality.
--- NOTE | 2023-04-07 23:40 | ECG_ITS ---
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 Measurements Intervals [place] Rate: 95 P: 64 SD: 158 QRS: 22 QRSD: 90 T: 39 QT: 350 QTc: 442 Interpretive Statements SINUS RHYTHM LOW QRS VOLTAGE IN PRECORDIAL LEADS [QRS DEFLECTION < 1.0 mV IN CHEST LEADS] Compared to ECG 02/25/2023 02:55:33 Low QRS voltage now present Electronically Signed On 04-08-2023 9:53:[address] SECURITY OFFICER by Benjy Pyle M.D. [id number]
--- NOTE | 2023-04-07 23:55 | W.ED.ABDPA2 ---
HPI - Abdominal Pain General: Chief Complaint: Abdominal Pain Stated Complaint: stomach pain, hives, itching chest pain Time Seen by Provider: 04/07/23 23:32 Source: patient Mode of arrival: ambulatory Limitations: no limitations History of Present Illness: 37-year-old female states she had woke up roughly 30 minutes ago with hives and rash to her abdomen feeling like her throat was tight states she started feeling extremely anxious about it and was having shortness of breath and chest pain. States she is calm down her symptoms are much improved her rash is improved to but still has some pruritus. 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 Coccyx pain Allergic rhinitis due to allergen Chronic right shoulder pain Surgical History Hx of section Hx of oral surgery Family History Mother Diabetes Father Diabetes Social History Smoking and tobacco/nicotine status: current every day tobacco/nicotine user cigarettes Packs smoked per day: 0.5 Quit status (tobacco/nicotine): has tried quititng Alcohol intake: current Alcohol intake frequency: holidays/special occasions only Substance/Drug Use: never Adopted: No Caregiver/support person: No Lives independently: No Household members: spouse Housing: House Marital status: Number of children: 3 Highest education level completed: High School Graduate service: No Current occupational status: employed Current occupational exposures/hazards: No Pets and animals: No Sexually active: Yes Do you think of yourself as: Straight/Heterosexual Current gender identity: Female Physical Exam Const: COMMON NORMALS: no acute distress, patient oriented x3 and healthy appearing HENMT: COMMON NORMALS: normocephalic HEAD & SCALP: normocephalic THROAT: posterior oropharynx normal Neck/C-Spine: COMMON NORMALS: full ROM and supple Chest: COMMONS NORMALS: normal inspection of the chest Resp: COMMON NORMALS: normal respiratory effort, No retractions, No use of accessory muscles and clear to auscultation bilaterally AUSCULTATION: clear to auscultation bilaterally Cardio: COMMON NORMALS: regular rate, regular rhythm and No murmurs present (Cardio) RATE: regular rate RHYTHM: regular rhythm GI: COMMON NORMALS: Soft to palpation, non-tender and no masses PALPATION: Yes Soft to palpation Extremity: COMMON NORMALS: normal to inspection and full ROM Neuro: COMMON NORMALS: patient oriented x3, moves all extremities and no focal motor deficits Psych: COMMON NORMALS: mental status grossly normal Skin: COMMON NORMALS: no wounds NARRATIVE SKIN EXAM: Hives noted to abdomen Course Vital Signs: Vital signs: Vital Signs Temperature 98.7 F 04/07/23 23:33 Pulse Rate 74 04/08/23 00:25 Respiratory Rate 16 04/08/23 00:25 Blood Pressure 123/87 04/08/23 00:25 Pulse Oximetry 94 04/08/23 00:25 Oxygen Delivery Me thod Room Air 04/08/23 00:25 MDM - Abdominal Pain Medical Decision Making Patient presents here with hives likely allergic reaction she had shortness of breath abdominal pain is likely not anxiety attack her blood work here is all normal her rash is improved she is stable for discharge she is follow-up with PCP and return if worsening. Medical Records I reviewed the patient's medical records. Lab Data I reviewed the patient's lab results. 04/07/23 23:44 04/07/23 23:44 Labs/Radiology: Radiology Impressions Chest X-Ray 04/07/23 23:40 IMPRESSION: No acute plain radiographic cardiopulmonary abnormality. Laboratory Results WBC 13.08 10^3/uL (3.29-11.43) H 04/07/23 23:44 RBC 5.16 10^6/uL (3.85-5.65) 04/07/23 23:44 Hgb 14.70 g/dL (11.27-16.99) 04/07/23 23:44 Hct 44.8 % (36-47) 04/07/23 23:44 MCV 86.8 fl (85-98) 04/07/23 23:44 MCH 28.5 pg (27-33) 04/07/23 23:44 MCHC 32.8 g/dL (30-55) 04/07/23 23:44 RDW 13.3 % (12.1-15.1) 04/07/23 23:44 Plt Count 282 10^3/cmm (157-399) 04/07/23 23:44 MPV 10.4 fL (7.4-10.4) 04/07/23 23:44 Neut % (Auto) 48.4 % 04/07/23 23:44 Lymph % (Auto) 41.2 % 04/07/23 23:44 [place] % (Auto) 7.4 % 04/07/23 23:44 Eos % (Auto) 2.1 % 04/07/23 23:44 Baso % (Auto) 0.6 % 04/07/23 23:44 Neut # (Auto) 6.32 10^3/uL (1.8-7.7) 04/07/23 23:44 Lymph # (Auto) 5.4 10^3/uL (0.8-4.8) H 04/07/23 23:44 [place] # (Auto) 1.0 10^3/uL (0.2-0.9) H 04/07/23 23:44 Eos # (Auto) 0.3 10^3/uL (0.0-0.8) 04/07/23 23:44 Baso # (Auto) 0.1 10^3/uL (0.0-0.1) 04/07/23 23:44 Nucleated RBC % (auto) 0 % 04/07/23 23:44 Nucleated RBCs # 0.0 /100WBC 04/07/23 23:44 Sodium 137 mmol/L (136-145) 04/07/23 23:44 Potassium 4.1 mmol/L (3.5-5.1) 04/07/23 23:44 Chloride 102 mmol/L (98-107) 04/07/23 23:44 Carbon Dioxide 24 mmol/L (22-29) 04/07/23 23:44 Anion Gap 15.1 (5-19) 04/07/23 23:44 BUN 14 mg/dL (6-20) 04/07/23 23:44 Creatinine 0.7 mg/dL (0.5-0.9) 04/07/23 23:44 GFR Calculation 95.2 mL/min (90-130) 04/07/23 23:44 Glucose 105 mg/dL (65-115) 04/07/23 23:44 Calculated Osmolality 285 mOsm/kg (285-295) 04/07/23 23:44 Calcium 9.9 mg/dL (8.5-10.5) 04/07/23 23:44 Total Bilirubin 0.2 mg/dL (0.15-1.2) 04/07/23 23:44 AST 18 U/L (0-32) 04/07/23 23:44 ALT 29 U/L (0-33) 04/07/23 23:44 Alkaline Phosphatase 73 U/L (35-105) 04/07/23 23:44 Troponin T Baseline < 6 ng/L (0-10) 04/07/23 23:44 Total Protein 6.7 g/dL (6.6-8.7) 04/07/23 23:44 Albumin 4.3 g/dL (3.5-5.2) 04/07/23 23:44 Globulin 2.4 g/dL (1.3-4.6) 04/07/23 23:44 Lipase 41 U/L (13-60) 04/07/23 23:44 HCG, Qual Negative (Negative) 04/07/23 23:44 All radiology interpretation(s) finalized by discharge EKG Data EKG 1: I personally reviewed and interpreted this EKG as follows: EKG interpretation date: 04/07/23 EKG interpretation time: 23:37 Interpretation: nsr hr [address] or t wave abnormalitie qrs 90 qtc 403 Discharge Plan Discharge Patient Disposition: Home Clinical Impression: Allergic reaction Abdominal pain Qualifiers: Abdominal location: generalized Qualified Code(s): R10.84 - Generalized abdominal pain Condition: Stable Prescriptions: New EpiPen 2-Kwan 0.3 mg/0.3 mL auto-injector 0.3 mg IM Q20M PRN (Reason: anaphylaxis) Qty: 2 0RF Rx Instructions: for 2 doses No Action celecoxib [Celebrex] 100 mg capsule 100 mg PO BID Qty: 60 2RF fluticasone propionate [Flonase Allergy Relief] 50 mcg/actuation spray,suspension 1 spray intranasal BID Qty: 16 0RF Rx Instructions: administer into each nostril Zyrtec 10 mg capsule 10 mg PO DAILY PRN Discharge Orders: Discharge ED (Routine); Ordered 04/08/23 Ordered By: Vaishnavi Myers Referrals: Marlon Cali DO [Primary Care Provider] - 1-3 days Discharge Diet: Advance as tolerated Discharge Activity: Resume usual activity Patient Instructions: Abdominal Pain (ED), General Allergic Reaction (ED) Coding Level of Care Code ED Cellophane Bag Machine Operator for Brittney Martin
[2023-04-08 00:04] LABS: HCG, Serum Qual Negative (Negative)
[2023-04-08 00:07] LABS: Basophils # 0.1 10^3/uL (0.0-0.1); Basophils % 0.6 %; Eosinophils # 0.3 10^3/uL (0.0-0.8); Eosinophils % 2.1 %; Hematocrit 44.8 % (36-47); Lymphocytes # 5.4 10^3/uL (0.8-4.8); Lymphocytes % 41.2 %; Mean Corpuscular HGB Conc 32.8 g/dL (30-55); Mean Corpuscular Hemoglobin 28.5 pg (27-33); Mean Corpuscular Volume 86.8 fl (85-98); Mean Platelet Volume 10.4 fL (7.4-10.4); Monocytes % 7.4 %; Neutrophils # 6.32 10^3/uL (1.8-7.7); Neutrophils % 48.4 %; Nucleated Red Blood Cells % 0 %; Platelet Count 282 10^3/cmm (157-399); Red Blood Count 5.16 10^6/uL (3.85-5.65); Red Cell Distribution Width 13.3 % (12.1-15.1); Slide Review Slide Review Perform; White Blood Count 13.08 10^3/uL (3.29-11.43)
[2023-04-08 00:13] LABS: Alanine Aminotransferase 29 U/L (0-33); Albumin Level 4.3 g/dL (3.5-5.2); Alkaline Phosphatase 73 U/L (35-105); Blood Urea Nitrogen 14 mg/dL (6-20); Calcium 9.9 mg/dL (8.5-10.5); Carbon Dioxide 24 mmol/L (22-29); Chloride 102 mmol/L (98-107); Globulin 2.4 g/dL (1.3-4.6); Glomerular Filtration Rate 95.2 mL/min (90-130); Glucose 105 mg/dL (65-115); Lipase 41 U/L (13-60); Osmolality Calculated 285 mOsm/kg (285-295); Sodium 137 mmol/L (136-145); Total Bilirubin 0.2 mg/dL (0.15-1.2); Total Protein 6.7 g/dL (6.6-8.7)
[2023-04-08] MEDS: methylPREDNISolone sod succ 125 mg/2 mL INJ IVP (00:14)
[2023-04-08] MEDS: ondansetron 2 mg/ML SDV 2 mL 4 MG IVP (00:14)
[2023-04-08] MEDS: diphenhydrAMINE 50 mg/mL SDV 1mL IVP (00:14)
[2023-04-08 00:18] LABS: Troponin(5th) Baseline < 6 ng/L (0-10)
[2023-04-08 00:25] VITALS: BP 123/87; PULSE 74; RESP 16; O2SAT 94
[2023-04-08 00:28] LABS: Anion Gap 15.1 (5-19); Potassium 4.1 mmol/L (3.5-5.1)
[2023-04-08 00:29] LABS: Aspartate Amino Transferase 18 U/L (0-32)
[2023-04-08 00:39] VITALS: BP 123/94; PULSE 76; RESP 16; O2SAT 97
== END 2023-04-08 00:40 | disposition home or self-care (01) ==
PROVIDERS: Emergency Provider Emergency Medicine; PCP Family Medicine
DX: R10.84 Generalized abdominal pain (principal); T78.40XA Allergy, unspecified, initial encounter; X58.XXXA Exposure to other specified factors, initial encounter; Z72.0 Tobacco use
CPT/HCPCS: 71045; 80053; 83690; 84484; 84703; 85025; 93005; 96374; 96375; 99285; J1200; J2405; J2930

== ENCOUNTER 2023-05-02 15:50 | Outpatient (CLI) | payer OTHER, SELFPAY ==
[2023-05-02 16:18] LABS: Erythrocyte Sedimentation Rate 20 mm/hr (0-15)
[2023-05-02 17:12] LABS: Chol HDL Ratio 4.25 mg/dL (0.0-4.40); Cholesterol 170 mg/dL (0-200); HDL Cholesterol 40 mg/dL (60-100); LDL Cholesterol Calculated 67 mg/dL (50-129); LDL HDL Ratio 1.68 RATIO (0.00-3.22); Triglycerides 314 mg/dL (0-150)
[2023-05-06 16:05] LABS: Egg White (F1) Ige <0.10 kU/L; Egg White Class 0; Immunoglobulin E 45 kU/L (<OR=114); Maize Corn Class 0; Maize/Corn (F8) Ige <0.10 kU/L; Oat (F7) Ige <0.10 kU/L; Oat Class 0; Pork Class 2; Potato (F35) Ige <0.10 kU/L; Potato Class 0; Rye (F5) Ige <0.10 kU/L; Rye Class 0; Soybean (F14) Ige <0.10 kU/L; Soybean Class 0; Tomato (F25) Ige <0.10 kU/L; Tomato Class 0; Wheat (F4) Ige <0.10 kU/L; Wheat Class 0
[2023-05-07 18:33] LABS: Allergen Beef Igg 9.9 mcg/mL (<2.0); Allergen Cacao (Chocolate) Igg <2.0 mcg/mL (<2.0); Allergen Chicken Meat Igg <2.0 mcg/mL (<2.0); Allergen Orange Igg <2.0 mcg/mL (<2.0); Allergen Peanut Igg <2.0 mcg/mL (<2.0); Yeast (F45) Igg <2.0 mcg/mL (<2.0)
== END 2023-05-02 15:51 | disposition home or self-care (01) ==
LOC: LAB 15:51
PROVIDERS: PCP Family Medicine; Visit Provider Family Medicine
DX: Z91.018 Allergy to other foods (principal); R10.9 Unspecified abdominal pain; G89.29 Other chronic pain; L50.9 Urticaria, unspecified
CPT/HCPCS: 36415; 80061; 85651; 86003; 86140

== ENCOUNTER 2023-09-19 17:34 | Emergency (ER) | payer OTHER, SELFPAY ==
[2023-09-19 17:45] VITALS: BP 138/73; PULSE 85; RESP 14; TEMP 36.7; O2SAT 98
--- NOTE | 2023-09-19 17:59 | XRR_ITS ---
PROCEDURE INFORMATION: Exam: XR Left Ankle Exam date and time: 09/19/2023 6:23 PM Age: 38 years old Clinical indication: Pain; Ankle; Left; Additional info: Fall/pain, , PT fell off bucket and landed on lt ankle TECHNIQUE: Imaging protocol: Radiologic exam of the left ankle. Views: 3 or more views. COMPARISON: CR XR foot LT 2V [id number] 08/07/2022 11:09 AM FINDINGS: Bones/joints: Ankle mortise is intact without evidence of acute fracture or subluxation. Soft tissues: Mild soft tissue edema. XR/XR ankle LT min 3V* [id number] IMPRESSION: 1. No evidence of acute fracture or subluxation. If there is ongoing clinical concern, consider correlation with CT.
--- NOTE | 2023-09-19 17:59 | XRR_ITS ---
PROCEDURE INFORMATION: Exam: XR Left Foot Exam date and time: 09/19/2023 6:25 PM Age: 38 years old Clinical indication: Pain; Ankle; Left; Additional info: Fall/pain, PT fell off bucket and landed on lt ankle TECHNIQUE: Imaging protocol: Radiologic exam of the left foot. Views: 3 or more views. COMPARISON: CR XR foot LT 2V [id number] 08/07/2022 11:09 AM FINDINGS: Bones/joints: No evidence of acute fracture or subluxation. Tarsometatarsal alignment is maintained. Soft tissues: No gross soft tissue abnormality. XR/XR foot LT min 3V* [id number] IMPRESSION: 1. No evidence of acute fracture or subluxation.
--- NOTE | 2023-09-19 18:06 | W.ED.EXTPRO ---
HPI - Extremity Problem General: Chief complaint: Extremity Injury, Lower Stated complaint: fall, left ankle pain Time Seen by Provider: 09/19/23 17:53 Source: patient Mode of arrival: ambulatory Limitations: no limitations History of Present Illness: Patient is a 38-year-old female presenting to the emergency department complaining of left ankle injury today at 1300. Patient states she was standing on a bucket when she fell off and had an inversion injury to her left ankle. Initially she was ambulatory but states that slowly started to swell more and get more painful. She has no prior injuries or surgeries to that foot. She is denying any bruising but states that now it is too painful for her to walk on. She did put an Sam wrap bandage on it prior to presenting. No knee pain but she does note some distal extension of the pain to her medial left foot. No sensory changes noted. MD Complaint: extremity pain, joint swelling and joint pain Onset (ago): hour(s) Pain Consistency: constant Location: left Radiation: distal Exacerbating factors: range of motion and weight bearing Associated symptoms: Deny chest pain, fever(s) or rash Review of Systems General: Reports: 10 or more systems reviewed and unremarkable except in HPI and below Const: Denies: fever(s) or chills Card: Denies: chest pain Resp: Denies: dyspnea or productive cough GI: Denies: abdominal pain, nausea, vomiting or diarrhea : Denies: flank pain Musc: Reports: extremity pain, joint pain, joint swelling and limited range of motion; Denies: neck pain, back pain, extremity swelling, joint redness, joint warmth or muscle weakness Skin/Breast: Denies: rash Neuro: Denies: headache(s), numbness in extremities or weakness in extremities PFSH ED PFSH: Medical History 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 Coccyx pain Allergic rhinitis due to allergen Chronic right shoulder pain Surgical History Hx of section Hx of oral surgery Family History Mother Diabetes Father Diabetes Social History Smoking and tobacco/nicotine status: current every day tobacco/nicotine user cigarettes Packs smoked per day: 0.5 Quit status (tobacco/nicotine): has tried quititng Alcohol intake: current Alcohol intake frequency: holidays/special occasions only Substance/Drug Use: never Adopted: No Caregiver/support person: No Lives independently: No Household members: spouse Housing: House Marital status: Number of children: 3 Highest education level completed: High School Graduate service: No Current occupational status: employed Current occupational exposures/hazards: No Pets and animals: No Sexually active: Yes Do you think of yourself as: Straight/Heterosexual Current gender identity: Female Physical Exam Const: COMMON NORMALS: no acute distress, patient oriented x3, no limitations, healthy appearing, alert and well nourished HENMT: COMMON NORMALS: normocephalic and atraumatic HEAD & SCALP: normocephalic and atraumatic Neck/C-Spine: COMMON NORMALS: full ROM, supple and no meningeal signs Resp: COMMON NORMALS: normal respiratory effort, No use of accessory muscles and clear to auscultation bilaterally AUSCULTATION: clear to auscultation bilaterally Cardio: COMMON NORMALS: regular rate and regular rhythm RATE: regular rate RHYTHM: regular rhythm Extremity: COMMON NORMALS: capillary refill normal, no clubbing, cyanosis or edema, no calf tenderness and no pedal edema NARRATIVE EXTREMITY EXAM: There is edema noted to lateral aspect of the left ankle, over the lateral malleolus. This area is tender to the touch. She also has some dorsal foot tenderness over the first MTP. There is no obvious bruising at this time. Distal neurovascular exam is intact and there are equal pulses. She can move the foot, though with pain. Negative calcaneal squeeze and negative ankle squeeze. No fibular head tenderness. Neuro: COMMON NORMALS: patient oriented x3, moves all extremities, no focal motor deficits and no sensory deficits noted SENSORIUM/ORIENTATION: Yes alert MENINGEAL SIGNS: Yes no meningeal signs Skin: COMMON NORMALS: no rashes or lesions noted GENERAL SKIN EXAM: no rashes or lesions noted Course Vital Signs: Vital signs: Vital Signs Temperature 98.0 F 09/19/23 17:45 Pulse Rate 85 09/19/23 17:45 Respiratory Rate 14 09/19/23 17:45 Blood Pressure 138/73 09/19/23 17:45 Pulse Oximetry 98 09/19/23 17:45 Oxygen Delivery Me thod Room Air 09/19/23 17:45 MDM - Extremity (Nontraumatic) Medical Decision Making Patient presented for left ankle injury prior to arrival. Pain is gradually worsened since onset and associated with some swelling. Exam revealed some swelling and pain to the lateral malleolus. X-ray did not demonstrate any acute fractures in the ankle or in the foot. She will enact RICE therapy and return with any new or worsening. Tylenol and ibuprofen instructed to be used for pain relief. I do believe she has a sprain of the left ankle but in the case that pain is still persisting this is why she will follow-up with primary care for reevaluation. XR interpretation done by ED provider, pending radiology final review Discharge Plan Discharge Patient Disposition: Home Clinical Impression: Left ankle sprain Condition: Stable Prescriptions: No Action celecoxib [Celebrex] 100 mg capsule 100 mg PO BID Qty: 60 2RF fluticasone propionate [Flonase Allergy Relief] 50 mcg/actuation spray,suspension 1 spray intranasal BID Qty: 16 0RF Rx Instructions: administer into each nostril Zyrtec 10 mg capsule 10 mg PO DAILY PRN hydroxyzine HCl 10 mg tablet 5 mg PO TID PRN (Reason: anxiety) Qty: 30 0RF Rx Instructions: Can take 10mg TID if needed. EpiPen 2-Kwan 0.3 mg/0.3 mL auto-injector 0.3 mg IM Q20M PRN (Reason: anaphylaxis) Qty: 2 0RF Rx Instructions: for 2 doses Discharge Orders: Discharge ED (Routine); Ordered 09/19/23 Ordered By: Mango Bloom Referrals: Marlon Cali DO [Primary Care Provider] - Discharge Diet: Usual diet Discharge Activity: Increase activity as tolerated Patient Instructions: Ankle Sprain (ED) Activity Restrictions/Additional Instructions: Rest, ice, compression, and elevation. Alternate Tylenol and ibuprofen as discussed. Increase your range of motion gradually and gentle range of motion exercises as tolerated. Follow-up with primary care if your pain is persisting past 4-5 days, and return with any new concerning symptoms. Coding Level of Care Code ED [employer] for Brittney Martin
[2023-09-19 18:52] VITALS: BP 131/75; PULSE 81; RESP 16; TEMP 36.7; O2SAT 99
== END 2023-09-19 18:53 | disposition home or self-care (01) ==
PROVIDERS: Emergency Provider Physician Assistant; PCP Family Medicine
DX: S93.402A Sprain of unspecified ligament of left ankle, initial encounter (principal); Z79.899 Other long term (current) drug therapy; F17.210 Nicotine dependence, cigarettes, uncomplicated; X50.0XXA Overexertion from strenuous movement or load, initial encounter
CPT/HCPCS: 73610; 73630; 99283

== ENCOUNTER → 2024-04-22 07:55 | Outpatient (BNVA) | payer OTHER, SELFPAY | PROVIDERS: PCP Family Medicine; Visit Provider Family Medicine | DX: R01.1 Cardiac murmur, unspecified (principal); Z91.018 Allergy to other foods; L50.9 Urticaria, unspecified; R73.09 Other abnormal glucose; R53.82 Chronic fatigue, unspecified | CPT/HCPCS: 80053; 86003; 86008 ==

== ENCOUNTER → 2024-07-08 08:59 | Outpatient (BNVA) | payer OTHER, SELFPAY | PROVIDERS: PCP Family Medicine; Visit Provider Internal Medicine | DX: R01.1 Cardiac murmur, unspecified (principal) | CPT/HCPCS: 93005 ==

== ENCOUNTER 2024-08-03 11:46 | Outpatient (CLI) | payer OTHER, SELFPAY ==
--- NOTE | 2024-08-03 | ECG_ITS ---
[facility] Pat Name: Bria Mares Department: Room: Gender: Female Photo Journalist: : 1985 Requested By: Bryant Kerr Order Number: [id number] Gurrola MD: Bryant Kerr M.D. Interpretive Statements EXERCISE STRESS TEST EXERCISE DATA: The patient was exercised by Brandon protocol. Baseline heart rate was 100 beats per minute. Baseline blood pressure was 120/65 millimeters of mercury. Maximal predicted heart rate was 183 beats per minute. Maximum heart rate achieved was 168 which was 91% of the maximum predicted heart rate. Maximum blood pressure was 153/87 millimeters of mercury. Total exercise time was 7 minutes . Maximum METs achieved was 10.2. The reason for ending the test was maximal effort acheived.The patient complained of shortness of breath during the stress test, which then resolved at the end of the test. ELECTROCARDIOGRAM: BASELINE: Showed sinus rhythm, normal axis, no significant ST-T changes at the baseline noted. [] EXERCISE: At the peak exercise level, [] No significant ST-T changes suggestive of ischemia noted. [] RECOVERY: During the recovery period, heart rate dropped appropriately. No significant ST-T changes in the recovery suggestive of ischemia noted. [] CONCLUSION: 1. Exercise capacity is good. 2. Heart rate response was appropriate. 3. Blood pressure response was appropriate 4. Symptoms not suggestive of ischemia. 5. Stress test is negative for ischemia. Electronically Signed On 08-13-2024 06:29:52 CDT by Bryant Kerr M.D. [email or web address]
[2024-08-03 11:52] VITALS: BMI 38.0
[2024-08-03 12:28] VITALS: BP 110/89; PULSE 107
== END 2024-08-03 11:47 | disposition home or self-care (01) ==
LOC: CDL 11:47
PROVIDERS: PCP Family Medicine; Visit Provider Internal Medicine
DX: R01.1 Cardiac murmur, unspecified (principal)
CPT/HCPCS: 93017

== ENCOUNTER 2024-08-11 07:54 | Outpatient (CLI) | payer OTHER, SELFPAY ==
--- NOTE | 2024-08-11 07:45 | USCV_ITS ---
Vishnu Bria Age: 39 Gender: F : 1985 Exam Date: 08/11/2024 08:20 Ordering Phys: Bryant Kerr M.D ([email or web address]) Technologist: [place] [facility] [place]: murmur BP: 115 / 67 HR: 72 Rhythm: Sinus Technical Quality: Adequate MEASUREMENTS (Male / Female) Normal Values 2D ECHO LV Diastolic Diameter PLAX 3.9 cm 4.2 - 5.9 / 3.9 - 5.3 cm IVS Diastolic Thickness 1.0 cm 0.6 - 1.0 / 0.6 - 0.9 cm IVS Systolic Thickness 1.1 cm LVPW Diastolic Thickness 0.9 cm 0.6 - 1.0 / 0.6 - 0.9 cm LVPW Systolic Thickness 1.4 cm LVOT Diameter 2.0 cm LV Ejection Fraction 2D Teich 65.1 % LV Ejection Fraction MOD 4C 68.5 % LV Ejection Fraction MOD 2C 58.9 % LV Ejection Fraction 2C AL 59.8 % LA Diameter 3.1 cm RA Systolic Volume 4C AL 27.8 ml RA Systolic Volume 4C MOD 26.7 ml Aorta at Sinotubular Diameter 2.3 cm M-MODE LA Ao Ratio MM 1.5 AV Cusp Separation MM 1.6 cm DOPPLER MV Peak Velocity 107.0 cm/s MV Area PHT 3.6 cm squared Mitral E to A Ratio 1.1 TV Peak Velocity 154.5 cm/s TR Peak Velocity 165.0 cm/s TR Peak Gradient 10.9 mmHg TV Peak E Velocity 104.0 cm/s PV Peak Velocity 127.0 cm/s FINDINGS Left Ventricle Left ventricle is normal size. LV systolic function is normal with EF of 55-60%. No regional wall motion abnormalities are seen Right Ventricle Normal in size and function Right Atrium Normal in size Left Atrium Normal in size Mitral Valve Structurally normal mitral valve. Mild mitral regurgitation Aortic Valve Structurally normal aortic valve. Doppler exam not performed Tricuspid Valve Mild tricuspid regurgitation. Insufficient TR jet to calculate RVSP. Pulmonic Valve Not well visualized Pericardium Normal Aorta Normal in size IVC Not well visualized CONCLUSIONS LV systolic function is normal with EF 55 to 60%. Mild mitral regurgitation Mild tricuspid regurgitation Bryant Kerr MD (Electronically Signed) Final Date: 30 August 2024 15:05 S
== END 2024-08-11 07:55 | disposition home or self-care (01) ==
LOC: RAD 07:56
PROVIDERS: PCP Family Medicine; Visit Provider Internal Medicine
DX: R01.1 Cardiac murmur, unspecified (principal); I34.0 Nonrheumatic mitral (valve) insufficiency; I07.1 Rheumatic tricuspid insufficiency
CPT/HCPCS: 93306